=== PATIENT | male | born 1990 | race Caucasian/White ===

== ENCOUNTER 2018-04-10 23:37 | Emergency (ER) | payer OTHER ==
[~2018-04-10] VITALS: Ht 182.9 cm; Wt 90.7 kg
[~2018-04-10 23:37] MED LIST: NOHOMEMEDICATIONS
[2018-04-11] MEDS ORDERED: LEXAPRO 10 MG T10 M2 PO (00:20)
[2018-04-11 00:41] LABS: BASOPHILS 0.5 %
[2018-04-11 00:42] LABS: CALCIUM 8.8 mg/dL (8.5-10.1); POTASSIUM 3.6 mmol/L (3.5-5.1)
[2018-04-11 00:43] LABS: HEMOGLOBIN 15.2 gm/dL (14.0-18.0); LYMPHOCYTES 19.2 %; MCHC 34.3 g/dL (28.0-37.0); NUCLEATED RBCS 0 /100WBC
[2018-04-11 00:47] LABS: ALBUMIN 4.1 g/dL (3.4-5.0); TOTAL BILIRUBIN 0.4 mg/dL (<0.1-1.0); TOTAL PROTEIN 7.1 g/dL (6.4-8.2)
[2018-04-11 00:48] LABS: URINE BILIRUBIN NEGATIVE (Negative); URINE BLOOD NEGATIVE (Negative); URINE CLARITY CLEAR; URINE COLOR YELLOW; URINE GLUCOSE-RANDOM NEGATIVE (Negative); URINE KETONES NEGATIVE (Negative); URINE LEUKOCYTES-REFLEX NEGATIVE (Negative); URINE NITRITE-REFLEX NEGATIVE (Negative); URINE PROTEIN NEGATIVE (Negative); URINE SPECIFIC GRAVITY 1.015 (1.005-1.030); URINE UROBILINOGEN 0.2 E.U./dl (0.2-1.0)
[2018-04-11 01:01] LABS: ABSOLUTE BASOPHILS 0.1 thou/uL (0.0-0.2); ABSOLUTE EOSINOPHILS 0.5 thou/uL (0.0-0.7); ABSOLUTE MONOCYTES 0.7 thou/uL (0.0-1.2); EOSINOPHILS 4.6 %; HEMATOCRIT 44.4 % (42.0-52.0); MCH 30.7 pg (26.0-34.0); MCV 89.4 fL (80.0-100.0); MONOCYTES 7.2 %; MPV 8.9 fl. (7.2-11.1); PLATELET COUNT* 199 thou/uL (150-400); POLYS 68.5 %; RBC 4.96 mil/uL (4.50-6.00); RDW-CV 12.5 % (10.5-14.5); WBC 10.2 thou/uL (4.0-11.0)
[2018-04-11] MEDS ORDERED: BENTYL 20 MG TA20 M1 PO (02:44)
[2018-04-11] MEDS ORDERED: AMBIEN 10 MG TA10 MG PO (02:45)
[2018-04-11 02:58] VITALS: BP 127/70
== END 2018-04-11 02:58 | disposition home or self-care (01) ==
LOC: M.ERS 23:37
PROVIDERS: Emergency Medicine
DX: R10.31 Right lower quadrant pain (principal); R10.33 Periumbilical pain; R11.2 Nausea with vomiting, unspecified; J45.909 Unspecified asthma, uncomplicated; Z88.1 Allergy status to other antibiotic agents